=== PATIENT | female | born 1945 | race Caucasian/White ===

== ENCOUNTER 2017-12-14 06:01 | Inpatient (IN) | payer MEDICARE, BC ==
[~2017-12-14] VITALS: Ht 160 cm; Wt 66.0 kg
[~2017-12-14 06:01] MED LIST: ACIDOPHILUS1 CAP PO; AMLODIPINE5 MG PO; ASPIRIN LOW DOS81 M2 PO; BENADRYL 25MG C25 MG PO; CEPHALEXIN500 MG PO; ENALAPRIL20 MG OR; HUMALOG100 UNIT/M SC; HYDROCHLOROTH12.5 MG OR; KLOR-CON 1010 MEQ OR; LANTUS; LANTUS100 MG/ML SC; LIPITOR40 MG OR; LOSARTAN POT50 MG PO; NOVOLIN N1000 UNITS; OMEPRAZOLE20 MG OR; PRAVASTATIN20 MG PO; PREDNISONE50 MG PO; PROAIR HFA IN; ROBITUSSIN200 MG/10 PO; SIMVASTATIN40 MG OR; TENORMIN25 MG PO; TENORMIN50 MG OR; TRIGLIDE160 M1; TRILIPIX135 MG PO; VALTREX1 GM PO; ZOFRAN ODT8 MG SL
--- NOTE | 2017-12-14 06:03 | NUR ---
PATIENT BROUGHT IMMEDIATELY TO TREATMENT AREA VIA WHEELCHAIR. UNDRESSED INTO A GOWN. PLACED ON MONITOR. TRIAGE COMPLETED AT BEDSIDE. AWAITING MD DOTY.
[2017-12-14] MEDS ORDERED: LOPRESSOR50 M1 PO (06:24)
[2017-12-14] MEDS ORDERED: LEVEMIR100 UNIT/M SC (06:24)
[2017-12-14] MEDS ORDERED: CRESTOR10 MG PO (06:25)
[2017-12-14] MEDS ORDERED: NOVOLIN R100 UNIT/M SC (06:25)
[2017-12-14] MEDS ORDERED: PLAVIX75 MG PO (06:26)
[2017-12-14] MEDS ORDERED: NITROGLYCERIN0.4 MG SL (06:27)
[2017-12-14] MEDS ORDERED: RANITIDINE75 M1 PO (06:27)
[2017-12-14] MEDS ORDERED: SYSTANE OU (06:28)
[2017-12-14] MEDS ORDERED: ZYRTEC10 MG PO (06:28)
[2017-12-14 06:37] LABS: HEMATOCRIT 42.9 % (37.0-47.0); HEMOGLOBIN 15.1 g/dl (12.0-16.0); IMMATURE GRANULOCYTES 0.2 % (0.0-1.0); MEAN CELL VOLUME 92.1 fL CALC (80.0-100.0); MEAN CORPUSCULAR HGB 32.4 pG CALC (26.0-32.0); MEAN CORPUSCULAR HGB CONC 35.2 g/L CALC (32.0-36.0); NEUT# 9.73 thou/uL (2.00-7.15); RED BLOOD COUNT 4.66 mill/uL (4.20-5.60); RED CELL DISTRI WIDTH 12.5 % (11.5-15.5)
--- NOTE | 2017-12-14 06:43 | NUR ---
PT IS SNORING/ASLEEP W/P/D SKIN ,
--- NOTE | 2017-12-14 06:50 | NUR ---
BEDSIDE REPORT TO NURSE RYAN GONZALEZ
[2017-12-14 06:56] LABS: ALBUMIN 4.1 g/dL (3.2-5.0); ALKALINE PHOSPHATASE 39 u/l (38-126); AMYLASE 63 u/l (30-110); ANION GAP 25 (6-22 (CALC)); BILIRUBIN, TOTAL 0.6 mg/dL (0.0-1.4); BUN 25 mg/dL (8-23); BUN/CREATININE RATIO 32 (12-20 (CALC)); CARBON DIOXIDE 19 mmol/l (22-30); CHLORIDE 99 mmol/l (95-108); CREATININE 0.8 mg/dL (0.5-1.0); GFR > 60 ML/MIN (>=60 (CALC)); GFR FOR AFR.AMER. > 60 ML/MIN (>=60 (CALC)); LIPASE 51 u/l (23-300); POTASSIUM 4.1 mmol/l (3.5-5.1); SGOT/AST 38 u/l (9-36); SGPT/ALT 40 u/l (11-66); SODIUM 139 mmol/l (137-146); TOTAL PROTEIN 6.7 g/dL (6.3-8.2)
[2017-12-14 07:09] LABS: MYOGLOBIN 43 ng/mL (0 - 62)
--- NOTE | 2017-12-14 07:15 | NUR ---
PT REPORTS RELIEF FROM MORPHINE BUT IS NOW EXPERIENCING 10/10 PAIN TO THE EPIGATRIC AREA. MD NOTIFIED AND AWAITING NEW ORDERS.
--- NOTE | 2017-12-14 08:02 | NUR ---
SBAR PRINTED TO FLOOR
--- NOTE | 2017-12-14 08:11 | NUR ---
PT TO AND FROM BR W/STEADY GAIT. NO APPARENT DISTRESS. URINE COLLECTED PT STATED UNABLE TO HAVE BM AT THIS TIME.
[2017-12-14 09:05] LABS: URINE BILIRUBIN - DIPSTICK NEGATIVE (NEGATIVE); URINE BLOOD DIPSTICK TRACE-INTACT (NEGATIVE); URINE COLOR YELLOW; URINE GLUCOSE - DIPSTICK >=1000 mg/dL (NEGATIVE); URINE KETONE 40 mg/dL (NEGATIVE); URINE LEUK ESTERASE NEGATIVE (NEGATIVE); URINE NITRITE - DIPSTICK NEGATIVE (Negative); URINE PH 5.5 (4.5-8.0); URINE PROTEIN - DIPSTICK 100 mg/dL (NEG-TRACE); URINE SPECIFIC GRAVITY >=1.030; URINE UROBILINOGEN - DIPSTICK 0.2 E.U./dL (0.2)
[2017-12-14 09:08] LABS: URINE CLARITY SL CLOUDY
[2017-12-14 09:10] LABS: URINE EPITHELIAL CELLS FEW EPI/hpf (0-FEW); URINE MUCUS FEW hpf (NONE-FEW); URINE RBC 0-2 RBC/hpf (0-5)
--- NOTE | 2017-12-14 09:21 | NUR ---
REPORT CALLED TO CARLOS SILVA.
--- NOTE | 2017-12-14 09:30 | NUR ---
Admission Note Report Given to: CARLOS SILVA Transported by: Wheelchair X Stretcher Transported with: X Nurse Transporter X Patent IV O2 X Meat Service Team Member
[2017-12-14 09:32] VITALS: BP 143/64
--- NOTE | 2017-12-14 09:32 | NUR ---
PT ARRIVED TO FLOOR VIA STRETCHER ACCOMPANIED BY CARLOS DE LA FUENTE. PT AMBULATES WITH ASSIST X 1 STAFF MEMBER, R/T GENERALIZED WEAKNESS AND UNSTEADY GAIT. PT DENIES PAIN AT THIS TIME. NO NAUSEA. PLAN OF CARE DISCUSSED. REPORTING OF CONCERNS ENCOURAGED. CALL LIGHT REVIEWED AND IN REACH. FALL PRECAUTIONS REIFORCED. PT STATES UNDERSTANDING.
--- NOTE | 2017-12-14 14:30 | NUR ---
PT REPORTS NAUSEA. ZOFRAN IV ADMINISTERED. WILL MONITOR FOR EFFECTIVENESS.
--- NOTE | 2017-12-14 17:15 | NUR ---
TEMP 1007.7. ROB LOUISE NOTIFIED. ORDER FOR TYLENOL GIVEN. MED ADMINISTERED. WILL MONITOR FOR EFFECTIVENESS.
[2017-12-14 19:00] VITALS: BP 160/71
[2017-12-14 19:11] LABS: C. DIFFICILE TOXIN A&B NEGATIVE (NEGATIVE)
--- NOTE | 2017-12-14 19:30 | NUR ---
PATIENT RESTING IN BED AT THIS TIME WITH AT BEDSIDE. PATIENT JUST FINISHED CT PREP AND RADIOLOGY WAS NOTIFIED. PATIENT IS AWAKE ALERT AND ORIENTEDX3. PATIENT WITH NO COMPLAINTS OF PAIN AT THIS TIME. IVF NS PATENT AND INFUSING AT 100CC/HR VIA LEFT HAND-SITE APPEARS HEALTHY AT THIS TIME. SAFETY PRECAUTIONS REINFORCED. CALL LIGHT IN REACH. WILL CONT TO MONITOR.
--- NOTE | 2017-12-14 19:42 | NUR ---
ALFREDO FROM LAB CALLED WITH POSITIVE TROPONIN. DR KRISHNA MADE AWARE OF CRITICAL LAB RESULT.
--- NOTE | 2017-12-14 20:00 | NUR ---
PATIENT RESTING IN BED-NO COMPLAINTS AT THIS TIME. EKG WAS DONE AND DR. KRISHNA IS AWARE OF ELEVATED TROP. AWAITING FURTHER ORDERS FROM DR. KRISHNA REGUARDING [place] [facility] [place]
[2017-12-14 20:35] VITALS: BP 156/54
--- NOTE | 2017-12-14 21:00 | NUR ---
CT OF ABD AND PELVIS WAS COMPLETED. PATIENT TAKING SMALL AMT OF CLEAR LIQUIDS AT THIS TIME. RESTING IN BED WITH O2 VIA NASAL CANNULA IN PLACE. PATIENT DENIES ANY CHEST PAIN OR SOB. MEDICATED WITH LOVENOX ORDERED. PATIENT IS AWARE OF IMPENDING TRANSFER TO [facility]. SAFETY PRECAUTIONS REINFORCED.CALL LIGHT IN REACH. WILL CONT TO MONITOR.
[2017-12-14 21:08] VITALS: BP 156/54
--- NOTE | 2017-12-14 23:00 | NUR ---
RECIEVED CALL FROM [facility] REQUESTING FACE SHEET-SEVERAL ATTEMPTS WERE MADE TO FAX REQUESTED INFO TO [facility] WITHOUT SUCCESS. FINALLY RECIEVED BED ASSIGNMENT FROM ANAYA AT [facility]-[id number]. [facility] TRANSPORT WAS CALLED AND ETA OF 45 MINUTES WAS GIVEN. PATIENT WAS UPDATED REGUARDING IMPENDING TRANSFER. CONT TO DENY ANY CHEST PAIN OR SOB. PATIENT DID REFUSE HER PM INSULIN TONIGHT SHE HAS HAD VERY LITTLE TO DRINK AND BS WAS-215. CALL LIGHT IN REACH. WILL CONT TO MONITOR.
--- NOTE | 2017-12-14 23:45 | NUR ---
[facility] HERE FOR TRANSPORT TO [facility]. PATIENT ASSISTED TO STRTCHER WITH O2 VIA NASAL CANNULA IN PLACE. DBAS IN PLACE. HEP LOCK TO LEFT HAND INTACT. PACKET GIVEN TO TRANSPORT STAFF. PERSONAL BELONGINGS WERE GIVEN TO PATIENT . PATIENT TRANSFERRED TO [facility] VIA STRETCHER WITH [facility]ERSON[facility] AND FAMILY TO FOLLOW.
== END 2017-12-14 23:45 | disposition short-term general hospital (02) | DRG 282 ==
LOC: ED 06:01 → ED-I 07:50 → ED 08:02 → MS2 08:03
PROVIDERS: Emergency Medicine; ADMIT Internal Medicine; ATTEND Internal Medicine
DX: I21.4 Non-ST elevation (NSTEMI) myocardial infarction (principal); E86.0 Dehydration; E11.9 Type 2 diabetes mellitus without complications; J44.9 Chronic obstructive pulmonary disease, unspecified; I11.9 Hypertensive heart disease without heart failure; I25.10 Atherosclerotic heart disease of native coronary artery without angina pectoris; M06.9 Rheumatoid arthritis, unspecified; K21.9 Gastro-esophageal reflux disease without esophagitis; E78.5 Hyperlipidemia, unspecified; K52.9 Noninfective gastroenteritis and colitis, unspecified; I25.2 Old myocardial infarction; Z86.73 Personal history of transient ischemic attack (TIA), and cerebral infarction without residual deficits; Z95.820 Peripheral vascular angioplasty status with implants and grafts; Z79.4 Long term (current) use of insulin; Z95.5 Presence of coronary angioplasty implant and graft
CPT/HCPCS: J1650; S0164